=== PATIENT | female | born 2005 | race African-American/Black ===

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

== ENCOUNTER 2025-04-02 19:44 | Emergency (ER) | payer BC, SELFPAY ==
--- NOTE | 2025-04-02 19:46 | ED.EAR ---
HPI - Ear Problem General Chief complaint: Upper Respiratory Infection Stated complaint: Nose/Ear Source: patient and RN notes reviewed Mode of arrival: ambulatory Limitations: no limitations History of Present Illness HPI Narrative: Patient is a 19-year-old female who presents to the [facility] with complaints of sinus pain and pressure, nasal congestion, and ear pain. She states that the congestion and sinus pressure have been present for the last month. She reports an infrequent nonproductive cough. Denies chest pain or shortness of breath. Denies recent fevers. States that she has had right ear pain over the last few days. She denies ear drainage or difficulty hearing. States that she believes she has a sinus infection. Related Data Allergies Allergy/AdvReac Type Severity Reaction Status Date / Time Penicillins Allergy Unknown Verified 12/14/22 06:03 Review of Systems Review of Systems: CONSTITUTIONAL: Denies fever, chills, or sweats. EYES: Denies visual changes, redness, or discharge. ENT: Reports otalgia but denies sore throat. Reports nasal congestion and sinus pressure. CARDIOVASCULAR: Denies chest pain, palpitations, or edema. RESPIRATORY: Reports cough but denies dyspnea. GASTROINTESTINAL: Denies abdominal pain, nausea, vomiting, or diarrhea. GENITOURINARY: Denies dysuria or hematuria. SKIN: Denies rash or itching. MUSCULOSKELETAL: Denies back pain, joint pain, or myalgia. NEUROLOGIC: Denies headache, numbness, or weakness. Pertinent positives per HPI. PMFSH Past Medical History Medical History Depression Surgical History Surgical History No pertinent past surgical history Social History Social History Smoking status: Current every day smoker Tobacco type: cigarettes Alcohol intake: current Substance use type: marijuana Comments At the time of my signature, I reviewed and agree with the nursing past medical, surgical, social, and family history. There is no relevant family history pertinent to the patient complaint. Exam Narrative: GENERAL: This is a well-nourished, well-developed patient, in no apparent distress. HEAD: normocephalic, atraumatic. EYES: Sclera clear/white. Vision is grossly intact. EARS: External ears normal. Left TM normal without perforation. Right TM erythematous and bulging. Hearing grossly intact. NOSE: External nose normal with no obvious nasal discharge. + congestion. THROAT: Mucous membranes moist, posterior pharynx clear. NECK: Neck supple, non-tender without lymphadenopathy, masses or thyromegaly. CARDIOVASCULAR: Regular rate and rhythm without murmurs, gallops, or rubs. RESPIRATORY: Clear to auscultation. Breath sounds equal bilaterally. No wheezes, rales, or rhonchi. GASTROINTESTINAL: Abdomen soft, non-tender, nondistended. Bowel sounds are active. No hepato-splenomegaly, or palpable masses. No guarding. SKIN: warm, intact with no suspicious lesions or rash, good texture and turgor. NEURO: awake, alert, and oriented to person, place and time. There were no obvious focal neurologic abnormalities. Course Course Level of Care: Express Care Visit Vital Signs Vital signs: Vital Signs Temperature 97.2 F L 04/02/25 19:48 Pulse Rate 98 04/02/25 19:48 Respiratory Rate 16 04/02/25 19:48 Blood Pressure 132/95 H 04/02/25 19:48 Pulse Oximetry 100 04/02/25 19:48 Oxygen Delivery Room Air 04/02/25 19:48 Temperature 97.2 F L 04/02/25 19:48 Pulse Rate 98 04/02/25 19:48 Respiratory Rate 16 04/02/25 19:48 Blood Pressure 132/95 H 04/02/25 19:48 Pulse Oximetry 100 04/02/25 19:48 Oxygen Delivery Room Air 04/02/25 19:48 Reviewed Medical Decision Making MDM Narrative Medical decision making narrative: Take antibiotics as directed. May given ibuprofen and/or Tylenol as needed for pain and/or fever. Follow up with primary care provider in 7-10 days to have ear rechecked. Go to the ER for any new or worsening symptoms. Avoid smoking/second-hand smoke. Continue to take Tylenol or Motrin for pain. Increase your Vitamin C intake. Use a humidifier or vaporizer at night. Take Medications as prescribed. Drink plenty of water. 8-10 glasses per day. Use flonase 2 times per day for 5 days then as needed Take mucinex 2 times per day and be sure to take with 8oz of water. Follow up with Primary provider if not getting better. Differential Diagnosis Differential Diagnosis: otitis media, otitis externa, sinusitis Vital Signs Vital Signs: Vital Signs Temperature 97.2 F L 04/02/25 19:48 Pulse Rate 98 04/02/25 19:48 Respiratory Rate 16 04/02/25 19:48 Blood Pressure 132/95 H 04/02/25 19:48 Pulse Oximetry 100 04/02/25 19:48 Oxygen Delivery Room Air 04/02/25 19:48 Temperature 97.2 F L 04/02/25 19:48 Pulse Rate 98 04/02/25 19:48 Respiratory Rate 16 04/02/25 19:48 Blood Pressure 132/95 H 04/02/25 19:48 Pulse Oximetry 100 04/02/25 19:48 Oxygen Delivery Room Air 04/02/25 19:48 Critical Care Time Critical Care Time Critical Care Time: No Discharge Plan Discharge Clinical Impression: Acute right otitis media Sinusitis Qualifiers: Sinusitis location: unspecified location Chronicity: acute Recurrence: non-recurrent Qualified Code(s): J01.90 - Acute sinusitis, unspecified Patient Disposition: Home Condition: Stable Instructions: Antibiotic Form, Sinusitis (ED), Ear Infection (ED) Additional Instructions: Take antibiotics as directed. May given ibuprofen and/or Tylenol as needed for pain and/or fever. Follow up with primary care provider in 7-10 days to have ear rechecked. Go to the ER for any new or worsening symptoms. Avoid smoking/second-hand smoke. Continue to take Tylenol or Motrin for pain. Increase your Vitamin C intake. Use a humidifier or vaporizer at night. Take Medications as prescribed. Drink plenty of water. 8-10 glasses per day. Use flonase 2 times per day for 5 days then as needed Take mucinex 2 times per day and be sure to take with 8oz of water. Follow up with Primary provider if not getting better. Patient Language: Croatian Prescriptions: New fluticasone propionate [Flonase Allergy Relief] 50 mcg/actuation spray,suspension 1 spray intranasal BID Qty: 16 0RF Rx Instructions: administer into each nostril azithromycin 250 mg tablet See Rx Instructions .ROUTE .COMPLEX Qty: 6 0RF Rx Instructions: For 250 mg dose pack: take 500 mg today (day 1), then 250 mg for 4 days (days 2-5) Follow-up/Referrals: PHYSICIAN,CLIMATE CHANGE ANALYST [Primary Care Provider] - Stand Alone Forms: Work/School Release IP Time of Disposition: 19:56
[2025-04-02 19:48] VITALS: BP 132/95; PULSE 98; RESP 16; TEMP 36.2; O2SAT 100
== END 2025-04-02 19:57 | disposition home or self-care (01) ==
PROVIDERS: Emergency Provider Nurse Practitioner
DX: J01.90 Acute sinusitis, unspecified (principal)
CPT/HCPCS: 99213; G0463